=== PATIENT | female | born 1960 | race African-American/Black ===

== ENCOUNTER 2020-10-04 07:52 | Inpatient (IN) | payer OTHER ==
[2020-09-26 14:25] VITALS: BMI 32.4
[2020-10-04] MEDS ORDERED: CELECOXIB 200 MG CAPSULE PO ONE (08:23)
[2020-10-04] MEDS ORDERED: VANCOMYCIN 1,000 MG VIAL (RESTRICTED TO ID ONLY) ONE (08:34)
[2020-10-04] MEDS ORDERED: DEXAMETHASONE SOD PHOSPHATE 4 MG/1 ML VIAL ONE ×2 (08:38→08:39)
[2020-10-04] MEDS ORDERED: KETOROLAC TROMETHAMINE 30 MG/1 ML VIAL ONE (08:38)
[2020-10-04] MEDS ORDERED: MIDAZOLAM HCL 2 MG/2 ML SINGLE DOSE VIAL ONE ×3 (08:40→11:57)
[2020-10-04] MEDS ORDERED: PROPOFOL 20 ML ONE ×7 (09:12→13:14)
[2020-10-04] MEDS ORDERED: BUPIVACAINE HCL/PF 0.5% (5MG/ML) 10 ML VIAL ONE (09:33)
[2020-10-04] MEDS ORDERED: BUPIVACAINE LIPOSOME/PF (EXPAREL) 266 MG/20 ML VIAL ONE (09:47)
[2020-10-04] MEDS ORDERED: SODIUM CHLORIDE 0.9% P/F 10 ML VIAL IJ ONE ×2 (09:47→11:02)
[2020-10-04] MEDS ORDERED: VANCOMYCIN 1,000 MG in DEXTROSE 5%-WATER - 250 ML IVPB ONE (10:00)
[2020-10-04] MEDS ORDERED: CEFAZOLIN 2 GM in DEXTROSE 5%-WATER - 100 ML IVPB ONE (10:00)
[2020-10-04] MEDS ORDERED: LIDOCAINE HCL 1%, 10 MG/ML (20ML VIAL) ONE (10:48)
[2020-10-04] MEDS ORDERED: LIDOCAINE 1% P/F 10 MG/ML VIAL ONE (10:48)
[2020-10-04] MEDS ORDERED: VANCOMYCIN 1,000 MG VIAL (RESTRICTED TO ID ONLY) IVPB ONE (10:59)
[2020-10-04] MEDS ORDERED: ceFAZolin SODIUM 1 GM VIAL IVPB ONE ×2 (10:59→13:35)
[2020-10-04] MEDS ORDERED: LIDOCAINE HCL/PF 2% SDV 5ML VIAL ONE (11:00)
[2020-10-04] MEDS ORDERED: TRANEXAMIC ACID 1000 MG/10 ML VIAL ONE (11:03)
[2020-10-04] MEDS ORDERED: ePHEDrine SULFATE 50 MG/1 ML AMPULE ONE (11:14)
[2020-10-04] MEDS ORDERED: MAG HYDROX/AL HYDROX/SIMETH 30 ML UNIT-DOSE CUP PO PRN (13:41)
[2020-10-04] MEDS ORDERED: ONDANSETRON 4 MG/2 ML VIAL IVPUSH PRN ×2 (13:41→14:01)
[2020-10-04] MEDS ORDERED: MAGNESIUM HYDROX 2400MG/30ML ORAL SUSPENSION 30 ML CUP PO PRN (13:41)
[2020-10-04] MEDS ORDERED: LACTATED RINGERS SOLUTION 1,000 ML IV SCH (13:45)
[2020-10-04] MEDS ORDERED: oxyCODONE HCL 5 MG TABLET PO PRN (14:01)
[2020-10-04] MEDS: LACTATED RINGERS SOLUTION 1,000 ML IV SCH (17:10)
[2020-10-04] MEDS: CEFAZOLIN 2 GM/D5W 2 GM/50 ML ML IVPB SCH (18:58)
[2020-10-04] MEDS: CELECOXIB 200 MG CAPSULE PO SCH (21:53)
[2020-10-04] MEDS: SENNOSIDES/DOCUSATE COMBO (SENNA PLUS) TABLET (UD) PO SCH (21:53)
[2020-10-04] MEDS: oxyCODONE HCL 10 MG SUSTAINED ACTING TABLET PO SCH (21:54)
[2020-10-04] MEDS: oxyCODONE HCL 5 MG TABLET PO PRN (21:55)
[2020-10-04] MEDS ORDERED: ASPIRIN 325 MG TABLET PO SCH (22:00)
[2020-10-04] MEDS ORDERED: ASPIRIN COATED 81 MG TABLET.EC PO SCH (22:15)
[2020-10-04] MEDS: ASPIRIN COATED 81 MG TABLET.EC PO SCH (22:29)
[2020-10-05] MEDS: CEFAZOLIN 2 GM/D5W 2 GM/50 ML ML IVPB SCH ×2 (01:02→06:20)
[2020-10-05] MEDS: oxyCODONE HCL 5 MG TABLET PO PRN (03:18)
[2020-10-05 07:56] LABS: HEMATOCRIT 32.1 % (32.4-45.2); HEMOGLOBIN 10.4 GM/dl (10.7-15.3); MCH 26.9 pg (25.7-33.7); MCHC 32.5 g/dl (32.0-36.0); MEAN CELL VOLUME 82.6 fl (80-96); PLATELET COUNT 250 K/MM3 (134-434); RBC 3.89 M/mm3 (3.60-5.2); RDW 13.4 % (11.6-15.6); WHITE BLOOD COUNT 8.9 K/mm3 (4.0-10.8)
[2020-10-05 08:05] LABS: CALCIUM 8.9 mg/dl (8.5-10); CREATININE 0.7 mg/dl (0.55-1.3); POTASSIUM 4.2 mmol/L (3.5-5.1)
[2020-10-05] MEDS ORDERED: SODIUM CHLORIDE 1,000 ML IV STA ×3 (09:00→13:23)
[2020-10-05] MEDS: ASPIRIN COATED 81 MG TABLET.EC PO SCH ×2 (10:25→21:23)
[2020-10-05] MEDS: PANTOPRAZOLE 40 MG TABLET PO SCH (10:25)
[2020-10-05] MEDS: oxyCODONE HCL 10 MG SUSTAINED ACTING TABLET PO SCH ×2 (10:25→21:25)
[2020-10-05] MEDS: CELECOXIB 200 MG CAPSULE PO SCH ×2 (10:25→21:23)
[2020-10-05] MEDS: SENNOSIDES/DOCUSATE COMBO (SENNA PLUS) TABLET (UD) PO SCH ×2 (10:26→21:23)
[2020-10-05] MEDS: ACETAMINOPHEN 500 MG TABLET (FP) PO PRN ×2 (10:29→21:23)
[2020-10-06 07:58] LABS: HEMATOCRIT 26.9 % (32.4-45.2); HEMOGLOBIN 9.1 GM/dl (10.7-15.3); MCH 28.1 pg (25.7-33.7); MCHC 33.8 g/dl (32.0-36.0); MEAN CELL VOLUME 83.3 fl (80-96); MEAN PLT VOLUME 8.8 fl (7.5-11.1); PLATELET COUNT 210 K/MM3 (134-434); RBC 3.22 M/mm3 (3.60-5.2); RDW 13.5 % (11.6-15.6); WHITE BLOOD COUNT 11.1 K/mm3 (4.0-10.8)
[2020-10-06] MEDS: ACETAMINOPHEN 500 MG TABLET (FP) PO PRN ×2 (08:08→16:49)
[2020-10-06] MEDS: LACTATED RINGERS SOLUTION 1,000 ML IV SCH ×2 (08:10→14:30)
[2020-10-06] MEDS: CELECOXIB 200 MG CAPSULE PO SCH (09:46)
[2020-10-06] MEDS: ASPIRIN COATED 81 MG TABLET.EC PO SCH (09:46)
[2020-10-06] MEDS: PANTOPRAZOLE 40 MG TABLET PO SCH (09:46)
[2020-10-06] MEDS: SENNOSIDES/DOCUSATE COMBO (SENNA PLUS) TABLET (UD) PO SCH (09:47)
[2020-10-06] MEDS: oxyCODONE HCL 10 MG SUSTAINED ACTING TABLET PO SCH (09:47)
[2020-10-06 18:25] VITALS: BP 127/56; PULSE 89; TEMP 98.7
== END 2020-10-06 18:29 | disposition home or self-care (01) | DRG 470 ==
LOC: FM/S 07:52
PROVIDERS: ADMIT Orthopaedic Surgery Orthopaedic Surgery of the Spine; ATTEND Orthopaedic Surgery Orthopaedic Surgery of the Spine
PROC: 0SRD0J9 Replacement of Left Knee Joint with Synthetic Substitute, Cemented, Open Approach (ICD-10-PCS; principal; 2020-10-04 10:00)
DX: M17.12 Unilateral primary osteoarthritis, left knee (principal); E66.9 Obesity, unspecified; Z68.32 Body mass index [BMI] 32.0-32.9, adult; R55 Syncope and collapse; M21.162 Varus deformity, not elsewhere classified, left knee
CPT/HCPCS: 36415; 73560-TC-LT-FY; 80048; 84484; 85027; 86850; 86900; 86901; 88304-TC; 88311-TC; 93005; 94760; 97010-GP; 97116-GP; 97163-GP